=== PATIENT | female | born 1990 | race American Indian/Alaskan Native ===

== ENCOUNTER 2018-01-25 11:21 | Emergency (ER) | payer OTHER ==
[2018-01-25 11:21] VITALS: BMI 23.0
[2018-01-25 11:38] VITALS: BP 124/70; PULSE 104; RESP 18; TEMP 97.9; O2SAT 96
--- NOTE | 2018-01-25 12:18 | C.PDOC ---
History Of Present Illness 27yo female, presents to ED for evaluation of "hives all over my body" associated with redness and itchiness for the last three days. Pt notes she started Augmentin and Tessalon perles last week while being treated for a "bad cold" by her PCP. She stopped taking the Augmentin and Tesalon Perles Wednesday morning and developed a rash that day. Patient states she was evaluated at an urgent care center yesterday for same complaints, given prednisone of which she took 40mg without relief of symptoms, prompting her visit. Denies taking any antihistamines. She denies any shortness of breath, mouth swelling, throat swelling, difficulty swallowing. No fever. Time Seen by Provider: 01/25/18 12:00 Chief Complaint (Nursing): Allergic Reaction History Per: Patient History/Exam Limitations: no limitations Onset/Duration Of Symptoms: Days (3) Current Symptoms Are (Timing): Still Present Possible Cause: Medication Associated Symptoms: Skin Rash, Itching, Redness Home/EMS Treatment: Steroids Additional History Per: Patient Past Medical History Reviewed: Historical Data, Nursing Documentation, Vital Signs Vital Signs: Last Vital Signs Temp 97.9 F 01/25/18 11:36 Pulse 104 H 01/25/18 11:36 Resp 18 01/25/18 11:36 BP 124/70 01/25/18 11:36 Pulse Ox 96 01/25/18 12:25 - Medical History PMH: Anemia Surgical History: No Surg Hx Family History: States: Unknown Family Hx - Social History Hx Tobacco Use: No Hx Alcohol Use: No Hx Substance Use: No - Immunization History Hx Tetanus Toxoid Vaccination: No Hx Influenza Vaccination: No Hx Pneumococcal Vaccination: No Review Of Systems Except As Marked, All Systems Reviewed And Found Negative. ENT: Negative for: Mouth Swelling, Throat Swelling Respiratory: Negative for: Shortness of Breath Skin: Positive for: Rash Physical Exam - Physical Exam Appears: Non-toxic, No Acute Distress Skin: Dry, Other ((+) mild erythema noted to right lower quadrant of abdomen and on bilateral posterior knees secondary to scratching . No hives, papules, vesicles or discharge notes. ) Head: Atraumatic, Normacephalic Eye(s): bilateral: Normal Inspection, PERRL, EOMI Ear(s): Bilateral: Normal Nose: Normal Oral Mucosa: Moist Tongue: No Swelling Lips: No Swelling Throat: Normal, No Erythema, No Exudate, No Drooling Neck: Normal, Normal ROM, Supple Chest: Symmetrical Cardiovascular: Rhythm Regular, No Murmur Respiratory: Normal Breath Sounds, No Accessory Muscle Use, No Wheezing Gastrointestinal/Abdominal: Normal Exam, Soft, No Tenderness Back: Normal Inspection Extremity: Normal ROM Neurological/Psych: Oriented x3, Normal Speech ED Course And Treatment O2 Sat by Pulse Oximetry: 96 (RA) Pulse Ox Interpretation: Normal Progress Note: Patient given Benadryl, Solumedrol and Pepcid in ER. On re- evaluation, patient is resting comfortably, tolerating PO, has no shortness of breath, has no intra-oral swelling, no stridor. Patient notes that pruritus has improved.. Patient was advised to avoid potential allergens, and to follow up with physician in 1-2 days. Instructed to continue using Prednisone as prescribed and to take Benadryl every 6 hours for relief of symptoms. Given referral for an crayon sawyer follow up and instructed to return to ED if symptoms worsen. Disposition - Disposition Disposition: HOME/ ROUTINE Disposition Time: 12:14 Condition: STABLE Additional Instructions: Continue the prednisone prescribed yesterday and start taking Benadryl every 6 hours. Follow up with an crayon sawyer or community manager in 1-2 days. Return to ER if symptoms persist or worsen. Prescriptions: DiphenhydrAMINE [Benadryl] 25 mg PO Q6 #20 cap Famotidine [Pepcid] 20 mg PO BID #10 tab Instructions: Skin Rash (DC) Forms: [employer] (Georgian) - Clinical Impression Clinical Impression: Rash - PA / EDUCATIONAL ADMINISTRATION TEACHER / Resident Statement MD/DO has reviewed & agrees with the documentation as recorded. - Scribe Statement The provider has reviewed the documentation as recorded by the Scribe (Fabi Freeman) Provider Attestation: All medical record entries made by the Scribe were at my direction and personally dictated by me. I have reviewed the chart and agree that the record accurately reflects my personal performance of the history, physical exam, medical decision making, and the department course for this patient. I have also personally directed, reviewed, and agree with the discharge instructions and disposition.
== END 2018-01-25 12:31 | disposition home or self-care (01) ==
LOC: C.ER 11:21
DX: R21 Rash and other nonspecific skin eruption (principal)
CPT/HCPCS: 96372; 99284; J2930